=== PATIENT | female | born 1960 | race Two or more races ===

== ENCOUNTER 2021-02-05 14:59 | Outpatient (REF) | payer MEDICARE, MEDICAID, SELFPAY ==
[2021-02-05 15:10] LABS: COVID-19 Test Positive (Negative)
== END 2021-02-05 15:00 | disposition home or self-care (01) ==
LOC: HO.LAB 14:59
PROVIDERS: Visit Provider Internal Medicine
DX: Z20.822 Contact with and (suspected) exposure to COVID-19 (principal)
CPT/HCPCS: 36415; 87635; C9803

== ENCOUNTER 2021-02-20 15:17 | Outpatient (REF) | payer MEDICARE, MEDICAID, SELFPAY ==
[2021-02-20 15:36] LABS: COVID-19 Test Negative (Negative)
== END 2021-02-20 15:18 | disposition home or self-care (01) ==
LOC: HO.LAB 15:17
PROVIDERS: Visit Provider Internal Medicine
DX: Z20.822 Contact with and (suspected) exposure to COVID-19 (principal)
CPT/HCPCS: 36415; 87635; C9803

== ENCOUNTER 2022-01-24 16:13 | Emergency (ER) | payer MEDICARE, MEDICAID, SELFPAY ==
[2022-01-24 16:24] VITALS: BP 115/60; PULSE 75; RESP 16; TEMP 36.1; O2SAT 98; BMI 27.3
--- NOTE | 2022-01-24 17:45 | ED.BACK ---
HPI - Back Pain/Injury General Chief Complaint: Back Pain/Injury Stated Complaint: back pain Time Seen by Provider: 01/24/22 17:45 Source: patient Mode of arrival: ambulatory Limitations: no limitations History of Present Illness HPI Narrative: Patient is a 61 year old female presenting to the emergency department today with low back pain. Patient states that she has right sided low back pain that radiates down into her right leg. Patient states that she has had issues with her sciatic nerve and she believes this is another flare of that. Patient denies any numbness, tingling, dizziness, lightheadedness, abdominal pain, nausea, vomiting, fever, chills, blurry vision, double vision, loss of vision, chest pain, difficulty breathing, shortness of breath, night sweats, pain with urination, increased urinary frequency, increased urinary urgency, blood in her urine or stool, syncope or a near syncopal episode, recent trauma or falls, bowel incontinence, bladder incontinence, bowel retention, bladder retention, or any other complaints at this time. MD elicited complaint: back pain Pertinent past history: prior back pain Onset (ago): day(s) Timing: intermittent Severity: mild Pain scale (0-10): 3 Similar Symptoms Previously: Yes Quality: dull Location: lumbar spine Radiation: right upper leg Exacerbating factors: none Relieving factors: none Associated symptoms: denies other symptoms Related Data Previous Rx's Medication Instructions Recorded cyclobenzaprine 10 mg tablet 10 mg PO TID PRN 7 Days #21 tab 01/24/22 Allergies Allergy/AdvReac Type Severity Reaction Status Date / Time metoclopramide [From REGLAN] Allergy Severe AGITATION Unverified 07/04/20 18:46 Review of Systems Constitutional: Constitutional: Reports no additional constitutional complaints, Denies chills, Denies fever(s) and Denies night sweats Eyes: Eyes: Reports no additional eye complaints, Denies blurry vision, Denies change in vision, Denies diplopia, Denies eye discharge, Denies loss of vision and Denies eye pain ENT: Denies dizziness Cardiovascular: Cardiovascular: Reports no additional cardiovascular complaints, Denies chest pain, Denies lightheadedness, Denies Loss of Consciousness and Denies dyspnea Respiratory: Respiratory: Reports no additional respiratory complaints and Denies dyspnea Gastrointestinal: Gastrointestinal: Reports no additional gastrointestinal complaints, Denies abdominal pain, Denies melena, Denies hematochezia, Denies change in bowel habits and Denies change in stool character Genitourinary: Genitourinary: Denies hematuria, Denies urinary frequency, Denies dysuria, Denies urinary incontinence, Denies urinary hesitancy and Denies urinary urgency Musculoskeletal: Musculoskeletal: Reports no additional musculoskeletal complaints, Reports back pain, Denies numbness and Denies tingling Neurologic: Denies dizziness, Denies loss of vision, Denies numbness and Denies tingling Psychiatric: Psychiatric: Reports no additional psychiatric complaints Endocrine: Endocrine: Reports no additional endocrine complaints Hematologic/Lymphatic: Hematologic/Lymphatic: Reports no additional hematologic/lymphatic complaints Allergic/Immunologic: Allergic/Immunologic: Reports no additional allergic/immunologic complaints [facility] Past Medical History Attestation statement: The following information was validated with the patient. Source: old records reviewed Medical History Diabetes type 2, controlled HTN (hypertension) Hypothyroid Social History Social History Advance Directives: No Advance Directives Information Provided: No Patient : No Physical Exam Vital Signs: Vital Signs: Last Vital Signs Temp 97 F 01/24/22 16:24 Pulse 75 01/24/22 16:24 Resp 16 01/24/22 16:24 BP 115/60 01/24/22 16:24 Pulse Ox 98 01/24/22 16:24 BMI result Body Mass Index 27.3 Const: General: cooperative, no acute distress, alert and awake Nutritional Appearance: well nourished Orientation/consciousness: patient oriented x3 Limitations: no limitations HEENT: Head: Yes normal to inspection and Yes atraumatic Ears: hearing grossly normal bilaterally and external ears normal General nose exam: Normal external nose present, no nasal discharge noted and no epistaxis Face and sinus: Yes normal facial exam, No abrasion and No laceration Mouth: Normal oral and palatal mucosa present, no drooling and no muffled voice Eyes: General: appearance normal, both eyes and all related structures Periorbital: periorbital findings normal Eyelids: Yes eyelids normal Conjunctivae: conjunctivae normal Pupils: Equal, round and reactive pupils present EOM: EOMs intact bilaterally Neck: Neck: Yes normal visual inspection, Yes full ROM and Yes no lymphadenopathy Chest: Chest palpation & inspection: normal inspection of the chest Resp: Effort & Inspection: normal respiratory effort and able to speak in complete sentences Auscultation: clear to auscultation bilaterally Cardio: Rate: regular rate Rhythm: regular rhythm GI: Inspection: Yes normal to inspection : General: Yes no CVA tenderness Back/Spine/Pelvis: Back: no CVA tenderness Cervical Spine: normal cervical lordosis and cervical ROM normal Thoracic/Lumbar Spine: thoracic and lumbar spine normal to inspection and thoraco-lumbar ROM normal Neuro: General: patient oriented x3 and moves all extremities Cranial nerves: Yes Equal, round and reactive pupils present Cognition (Neuro): normal cognition Motor exam (neuro): 5/5 motor strength present throughout Sensory Exam: Normal double simultaneous stimulation for sensation Coordination: [id number] test normal Extrem: General: Yes normal to inspection, Yes full ROM and Yes capillary refill normal Psych: Appearance: grossly normal Mental Status: mental status grossly normal Affect: normal affect Attitude: cooperative Thought process: Normal thought process present Thought content: Normal thought content present Insight: Good insight present (Psych) MDM - Back Pain/Injury MDM Narrative Medical decision making narrative: Patient is a 61 year old female presenting to the emergency department today with low back pain. Patient's physical exam was unremarkable. I explained my physical exam findings to the patient. I answered all questions asked by the patient. Patient received PO Flexeril and IM Toradol which she stated helped her symptoms significantly. I stressed the importance of the patient taking her medication as prescribed. I stressed the importance of the patient following up with her primary care provider. I stressed the importance of the patient returning to the emergency department immediately if her symptoms were to worsen or if she were to develop any dizziness, shortness of breath, difficulty breathing, chest pain, blurry vision, loss of vision, nausea, vomiting, abdominal pain, fever, chills, back pain, or any other complaints. Patient verbalized agreement and understanding with this treatment plan and discharge. Differential Diagnosis Differential diagnosis: Likely sciatica Medical Records Attestation: I reviewed the patient's medical records. Discharge Plan Discharge Clinical Impression: Sciatica Patient Disposition: Home, Self-Care Instructions: Sciatica (ED) Additional Instructions: Follow up with your primary care provider. Return to the emergency department immediately if your symptoms worsen or if you develop any dizziness, shortness of breath, difficulty breathing, chest pain, blurry vision, loss of vision, nausea, vomiting, abdominal pain, fever, chills, back pain, or any other complaints. Prescriptions: New cyclobenzaprine 10 mg tablet 10 mg PO TID PRN (Reason: muscle spasm) 7 Days Qty: 21 0RF Referrals: Roberta Christianson MD [Primary Care Provider] - (Follow up with your PCP as needed. ) Print Language: Cambodian
[2022-01-24] MEDS: Cyclobenzaprine HCl 10 MG TABLET PO (17:52)
[2022-01-24] MEDS: Ketorolac Tromethamine 30 MG/ML VIAL IM (17:52)
== END 2022-01-24 18:19 | disposition home or self-care (01) ==
LOC: HO.ED 18:06
PROVIDERS: Emergency Provider Internal Medicine; PCP Internal Medicine
DX: M54.41 Lumbago with sciatica, right side (principal); E11.9 Type 2 diabetes mellitus without complications; I10 Essential (primary) hypertension
CPT/HCPCS: 96372; 99284; J1885

== ENCOUNTER 2022-04-17 17:36 | Emergency (ER) | payer MEDICARE, MEDICAID, SELFPAY ==
--- NOTE | ~2022-04-17 | CT_ITS ---
EXAMINATION: CT HEAD WITHOUT CONTRAST CLINICAL INFORMATION: Severe occipital headache. COMPARISON: None. TECHNIQUE: Contiguous axial imaging was performed from the skull base to vertex without intravenous administration of contrast. This CT examination was performed using dose optimization techniques as appropriate, variously including the following: *Automated exposure control *Adjustment of mA and/or kV according to patient size (this includes techniques or standardized protocols for targeted exams where dose is matched to indication/reason for exam; i.e. extremities or head) *Use of iterative reconstruction technique DLP: 582 mGy-cm FINDINGS: There is a group of calcifications in the left cerebellar hemisphere with mild associated hyperattenuation of the underlying parenchyma. There is no evidence of acute edematous territorial infarction. Chauhan-white matter differentiation is preserved. The ventricles are normal in size and configuration. No evidence for obstructive hydrocephalus. No abnormal mass effect or midline shift. No extra-axial fluid collections. No acute soft tissue or osseous abnormalities. Mucosal thickening of the paranasal sinuses. No air-fluid level. The mastoids and middle ear cavities are clear. CT/CT head/brain wo con IMPRESSION: Nonspecific calcified lesion in the left cerebellar hemisphere with associated hyperdensity of the parenchyma, in which small amount of blood products cannot be excluded. Recommend further evaluation with an MR of the brain with and without intravenous contrast. This critical result was discussed with Michelle Bustos at 04/17/2022 8:38 PM and it was ascertained that the content and urgency of the report was understood at the time of direct communication.
[2022-04-17 17:50] VITALS: BP 122/84; PULSE 92; RESP 18; TEMP 37; O2SAT 96; BMI 26.4
--- NOTE | 2022-04-17 19:34 | ED_ITS ---
HPI - URI/Sore Throat General Chief Complaint: Upper Respiratory Symptoms Stated Complaint: Headache/Sore throat/Ear pain/Fever Time Seen by Provider: 04/17/22 19:24 Source: patient Mode of arrival: ambulatory Limitations: no limitations History of Present Illness HPI Narrative: 61-year-old female with history of hypertension, diabetes presenting with 2 day of chills, sore throat, earache, diarrhea, myalgias, extreme headache, and states ?I know my body and I don't feel good?. Sudden in onset. She reports taking Tylenol with minimal relief, nothing seems to make it worse. She reports no one that she is in contact with is currently sick or has similar symptoms. She reports taking a trip to [facility] on wednesday and going in the water park. She reports her headache feels like a typical headache, however is not going away with Tylenol, she said its like a 7/10 and yesterday it came on suddenly and was a 10/10 she felt off balance and dizzy when it started. She denies head trauma, falls, vision changes, nausea, vomiting, dizziness, shortness of breath, chest pain, fever. Not on anticoagulation Related Data Previous Rx's Medication Instructions Recorded cyclobenzaprine 10 mg tablet 10 mg PO TID PRN muscle spasm 7 01/24/22 days #21 tabs amoxicillin 500 mg capsule 500 mg PO BID 10 days #20 caps 04/17/22 Allergies Allergy/AdvReac Type Severity Reaction Status Date / Time metoclopramide [From REGLAN] Allergy Severe AGITATION Unverified 07/04/20 18:46 Review of Systems Review of Systems: Constitutional : No Weight loss, No Fever, + Chills, + Fatigue, + Malaise ENT/Mouth : + sore throat, No Rhinorrhea Eyes: No Eye Pain, No Swelling, No Redness Cardiovascular : No Chest Pain, No SOB, No Dyspnea on Exertion, No Orthopnea, No Edema, No Palpitations Respiratory : No Cough, No Sputum, No Wheezing Gastrointestinal : No Nausea, No Vomiting, + Diarrhea, No Constipation, No abdominal Pain, No Hematochezia, No Melena Genitourinary : No Dysuria, No Urinary Frequency, No Hematuria, Musculoskeletal : No joint pain, + Myalgias, No Joint Swelling Skin : No Skin Lesions, No rash Neuro : No Weakness, No Numbness, No Dizziness, + Headache Psych : No Anxiety/Panic, No Depression All other systems reviewed and are negative Yes all other systems are reviewed and are negative [facility] Past Medical History Attestation statement: The following information was validated with the patient. Source: old records reviewed and nursing notes reviewed Medical History Diabetes type 2, controlled HTN (hypertension) Hypothyroid Social History Social History Advance Directives: No Advance Directives Information Provided: No Physical Exam Vital Signs: Vital Signs: Last Vital Signs Temp 98.6 F 04/17/22 17:50 Pulse 92 04/17/22 17:50 Resp 18 04/17/22 17:50 BP 122/84 04/17/22 17:50 Pulse Ox 96 04/17/22 17:50 O2 Del Method 04/17/22 17:50 BMI result Body Mass Index 26.4 VSS Appearance: Alert.? Oriented X3.? No acute distress.? Head: Normocephalic, atraumatic, no step-offs or deformities Eyes: Pupils equal, round and reactive to light.? ENT: + L-partial cerumen impaction, + R-Ear canal erythema Pharynx normal.? Neck: Normal inspection.? Neck supple.? Negative Kernig and Brudzinski. CVS: Normal heart rate and rhythm.? Pulses normal.? Respiratory: No respiratory distress.? Breath sounds normal.? Abdomen: Soft and nontender.? Skin: Skin warm and dry.? Normal skin color.? Normal skin turgor.? Extremities: No lower extremity edema.? No calf ttp. 5/5 strength to bilateral upper and lower extremities Neuro: Oriented X 3.? No motor deficit.? No sensory deficit. CN 2-12 intact. Normal [id number], [id number], steady tandem gait. Course Reevaluation(s) Reevaluation #1: Patient with slight leukocytosis likely secondary to otitis media. Chemistry with no acute findings. Coagulations within normal limits. Patient is COVID negative, negative for strep, influenza. Patient's symptoms likely secondary to otitis media. Abnormal head CT read initially however I discussed the CT and patient history and physical examination with Neurology Dr. Rush. He took the time to visualize patient's images and states that this is likely chronic in nature this could be followed up on an outpatient basis. Upon patient's discharge I did repeat neuro examination, neuro exam is nonfocal, normal c erebellar function. Low suspicion for ICH, cerebellar infarct. Patient feels well, pain improved after morphine. She is ambulating with a steady gait. I did educate her on findings of CT scan and advised her to follow-up with neurology as soon as possible. At this time I feel comfortable discharge home. Time: 21:37 MDM - URI/Sore Throat MDM Narrative Medical decision making narrative: 1920 61-year-old female presents today with headache, malaise, myalgias, ear pain and diarrhea over the last 24 hours. No sick contacts. Physical exam: Positive erythema in right ear canal. Negative Kernig and Brudzinski. Based off history and physical examination unlikely that this is meningitis, ICH, likely otitis media. Unlikely that this is a posterior stroke. Plan: CT of head Medical Records Attestation: I reviewed the patient's medical records. Lab Data Attestation: I reviewed the patient's lab results. Result diagrams: 04/17/22 21:05 04/17/22 21:05 Labs: Lab Results 04/17/22 04/17/22 04/17/22 Range/Units 19:39 19:39 19:39 WBC (4.8-10.8) X10*3/uL RBC (4.20-5.50) X10*6/uL Hgb (12.0-16.0) g/dl Hct (37.0-47.0) % MCV (80.0-98.0) fL MCH (27.0-33.0) pg MCHC (31.0-35.0) g/dl RDW (11.0-16.0) % Plt Count (160-400) X10*3/uL MPV (9.4-12.3) fL Immature Gran % (Auto) (0.0-0.4) % Neut % (Auto) (45-73) % Lymph % (Auto) (20-40) % Mcintosh % (Auto) (2-11) % Eos % (Auto) (0-4) % Baso % (Auto) (0-2) % Lymph # (Auto) (1.2-4.9) X10*3/uL Mcintosh # (Auto) (0.1-1.2) X10*3/uL Eos # (Auto) (0.0-0.4) X10*3/uL Baso # (Auto) (0.0-0.2) X10*3/uL Abs Immat Gran (auto) (0.00-0.03) X10*3/uL Absolute Neuts (auto) (2.0-8.3) x10*3/uL Absolute Nucleated RBC (0.0-0.012) X10*3/uL Nucleated RBC % (auto) (0.0-0.2) /100WBC PT (10.0-13.1) SEC INR (0.9-1.1) Sodium (135-145) mmol/L Potassium (3.3-5.1) mmol/L Chloride (96-108) mmol/L Carbon Dioxide (22-29) mmol/L Anion Gap (12-20) BUN (9-16) mg/dL Creatinine (0.5-1.4) mg/dL Estim Creat Clear Calc Estimated GFR Random Glucose (60-115) mg/dL Calcium (8.4-10.2) mg/dL Total Bilirubin (0.0-1.0) mg/dL AST (5-31) U/L ALT (0-31) U/L Alkaline Phosphatase (39-117) U/L Total Protein (6.5-8.0) g/dL Albumin (3.5-5.0) g/dL COVID-19 (JUAN JOSE) Negative (Negative) COVID-19 Clin Com TNP Influenza Type A (TALAT) Negative (Negative) Influenza Type B (TALAT) Negative (Negative) Influenza A & B Note See Note S. pyogenes GrpA TALAT Negative (Negative) 04/17/22 04/17/22 04/17/22 Range/Units 21:05 21:05 21:05 WBC 11.4 H (4.8-10.8) X10*3/uL RBC 4.08 L (4.20-5.50) X10*6/uL Hgb 11.0 L (12.0-16.0) g/dl Hct 34.5 L (37.0-47.0) % MCV 84.6 (80.0-98.0) fL MCH 27.0 (27.0-33.0) pg MCHC 31.9 (31.0-35.0) g/dl RDW 13.1 (11.0-16.0) % Plt Count 281 (160-400) X10*3/uL MPV 11.2 (9.4-12.3) fL Immature Gran % (Auto) 0.4 (0.0-0.4) % Neut % (Auto) 77.5 H (45-73) % Lymph % (Auto) 13.4 L (20-40) % Mcintosh % (Auto) 6.4 (2-11) % Eos % (Auto) 1.7 (0-4) % Baso % (Auto) 0.6 (0-2) % Lymph # (Auto) 1.5 (1.2-4.9) X10*3/uL Mcintosh # (Auto) 0.7 (0.1-1.2) X10*3/uL Eos # (Auto) 0.2 (0.0-0.4) X10*3/uL Baso # (Auto) 0.1 (0.0-0.2) X10*3/uL Abs Immat Gran (auto) 0.04 H (0.00-0.03) X10*3/uL Absolute Neuts (auto) 8.8 H (2.0-8.3) x10*3/uL Absolute Nucleated RBC 0.000 (0.0-0.012) X10*3/uL Nucleated RBC % (auto) 0.0 (0.0-0.2) /100WBC PT 12.6 (10.0-13.1) SEC INR 1.1 (0.9-1.1) Sodium 139 (135-145) mmol/L Potassium 3.6 (3.3-5.1) mmol/L Chloride 101 (96-108) mmol/L Carbon Dioxide 28 (22-29) mmol/L Anion Gap 14 (12-20) BUN 16 (9-16) mg/dL Creatinine 1.14 (0.5-1.4) mg/dL Estim Creat Clear Calc 41.8 Estimated GFR 48 Random Glucose 114 (60-115) mg/dL Calcium 9.2 (8.4-10.2) mg/dL Total Bilirubin 0.2 (0.0-1.0) mg/dL AST 13 (5-31) U/L ALT 15 (0-31) U/L Alkaline Phosphatase 71 (39-117) U/L Total Protein 7.4 (6.5-8.0) g/dL Albumin 4.4 (3.5-5.0) g/dL COVID-19 (JUAN JOSE) (Negative) COVID-19 Clin Com Influenza Type A (TALAT) (Negative) Influenza Type B (TALAT) (Negative) Influenza A & B Note S. pyogenes GrpA TALAT (Negative) Critical Care Time Critical Care Time Critical Care Time: No Discharge Plan Discharge Clinical Impression: Otitis media, Headache Patient Disposition: Home, Self-Care Instructions: Ear Infection (ED) Additional Instructions: Take your medications as prescribed. If you were prescribed antibiotics today, it is important that you take your medication to their entirety, do not skip any doses, do not finish them early. Follow-up with your primary care provider this week. Return to the emergency department with new or worsening symptoms. Such as fevers, chills, chest pain, shortness of breath, nausea, vomiting, dizziness, headache, vision changes, lethargy In case of emergency call [address] showed some calcifications, therefore you should follow-up with neurology as soon as possible. Prescriptions: New amoxicillin 500 mg capsule 500 mg PO BID 10 Days Qty: 20 0RF No Action cyclobenzaprine 10 mg tablet 10 mg PO TID PRN (Reason: muscle spasm) 7 Days Qty: 21 0RF Referrals: Roberta Christianson MD [Primary Care Provider] - 2 days Og Rush MD [Physician] - 2 days Stand Alone Forms: Work/School Release
[2022-04-17 20:07] LABS: Strep A Nucleic Acid Negative (Negative)
[2022-04-17 20:14] LABS: COVID-19 Test Negative (Negative); IDNOW Serial# 16C4AD1C; Influenza A Negative (Negative); Influenza B2 Negative (Negative)
[2022-04-17 21:09] LABS: MANUAL DIFF FLAG NO
[2022-04-17 21:14] LABS: Basophils Absolute Auto 0.1 X10*3/uL (0.0-0.2); Basophils Percent Auto 0.6 % (0-2); Eosinophils Absolute Auto 0.2 X10*3/uL (0.0-0.4); Eosinophils Percent Auto 1.7 % (0-4); Hematocrit 34.5 % (37.0-47.0); Imm Gran Abs Auto 0.04 X10*3/uL (0.00-0.03); Imm Gran Pct Auto 0.4 % (0.0-0.4); Lymphocytes Absolute Auto 1.5 X10*3/uL (1.2-4.9); Lymphocytes Percent Auto 13.4 % (20-40); Mean Corpuscular HGB Conc 31.9 g/dl (31.0-35.0); Mean Corpuscular Volume 84.6 fL (80.0-98.0); Mean Platelet Volume 11.2 fL (9.4-12.3); Monocytes Absolute Auto 0.7 X10*3/uL (0.1-1.2); Monocytes Percent Auto 6.4 % (2-11); Neutrophils Absolute Auto 8.8 x10*3/uL (2.0-8.3); Neutrophils Percent Auto 77.5 % (45-73); Platelet Count 281 X10*3/uL (160-400); Red Blood Count 4.08 X10*6/uL (4.20-5.50); Red Cell Distribution Width 13.1 % (11.0-16.0); White Blood Count 11.4 X10*3/uL (4.8-10.8)
--- NOTE | 2022-04-17 21:17 | PC.NURSE ---
18g IV access established in right AC. labs drawn and sent for analysis. rule out head bleed, per GERSON Bustos.
[2022-04-17 21:22] LABS: INTERNATIONAL NORM RATIO 1.1 (0.9-1.1); Prothrombin Time 12.6 SEC (10.0-13.1)
[2022-04-17 21:27] LABS: Alanine Aminotransferase 15 U/L (0-31); Albumin Level 4.4 g/dL (3.5-5.0); Alkaline Phosphatase 71 U/L (39-117); Anion Gap 14 (12-20); Aspartate Amino Transferase 13 U/L (5-31); Bilirubin Total 0.2 mg/dL (0.0-1.0); Blood Urea Nitrogen 16 mg/dL (9-16); Calcium 9.2 mg/dL (8.4-10.2); Carbon Dioxide 28 mmol/L (22-29); Chloride 101 mmol/L (96-108); Creatinine Clr Calc Pharmacy 41.8; Estimated Glomerular Filt Rate 48; Glucose Random 114 mg/dL (60-115); Potassium 3.6 mmol/L (3.3-5.1); Sodium 139 mmol/L (135-145); Total Protein 7.4 g/dL (6.5-8.0)
[2022-04-17 21:36] VITALS: BP 133/62; PULSE 85; RESP 18; TEMP 36.1; O2SAT 95
[2022-04-17] MEDS: Acetaminophen 325 MG TABLET 650 MG PO (22:00)
== END 2022-04-17 22:06 | disposition home or self-care (01) ==
PROVIDERS: Physician Assistant; Emergency Provider Internal Medicine; PCP Internal Medicine
DX: H66.93 Otitis media, unspecified, bilateral (principal); J02.8 Acute pharyngitis due to other specified organisms; R51.9 Headache, unspecified; H92.03 Otalgia, bilateral; R50.9 Fever, unspecified; Z20.822 Contact with and (suspected) exposure to COVID-19; Z79.899 Other long term (current) drug therapy
CPT/HCPCS: 70450; 80053; 85025; 85610; 87502; 87635; 87651; 99284

== ENCOUNTER 2022-06-03 17:20 | Emergency (ER) | payer MEDICARE, MEDICAID, SELFPAY ==
[2022-06-03 17:58] VITALS: BP 130/57; PULSE 74; RESP 18; TEMP 36.6; O2SAT 97; BMI 26.4
--- NOTE | 2022-06-03 19:10 | ED.BACK ---
HPI - Back Pain/Injury General Chief Complaint: Back Pain/Injury Stated Complaint: left lower back pain Time Seen by Provider: 06/03/22 19:10 Source: patient Mode of arrival: ambulatory Limitations: no limitations History of Present Illness HPI Narrative: 62-year-old female presents to the ER for evaluation of left lower back pain that started 4 days ago. She reports that came on gradually and she can not recall what she was doing that started. She reports the pain is in her left lower back and her left buttock and radiates to the groin and down the back of the left leg. She reports it is worse when she is trying to walk around. She denies any falls or injuries. She has not been taking any medications for pain. She denies any urinary or bowel incontinence, no lower extremity weakness, numbness, tingling. MD elicited complaint: back pain Onset (ago): day(s) (4) Timing: constant Severity: moderate Similar Symptoms Previously: No Quality: sharp, stabbing and spasming Location: left lower back Radiation: groin, buttocks and left upper leg Exacerbating factors: movement and walking Relieving factors: immobilization and supine Context: unknown Associated symptoms: denies other symptoms Work related injury: No Related Data Previous Rx's Medication Instructions Recorded cyclobenzaprine 10 mg tablet 10 mg PO TID PRN muscle spasm 7 01/24/22 days #21 tabs amoxicillin 500 mg capsule 500 mg PO BID 10 days #20 caps 04/17/22 cyclobenzaprine 10 mg tablet 10 mg PO TID PRN muscle spasm #14 06/03/22 tabs ibuprofen 600 mg tablet 600 mg PO Q8H PRN pain #14 tabs 06/03/22 Allergies Allergy/AdvReac Type Severity Reaction Status Date / Time metoclopramide [From REGLAN] Allergy Severe AGITATION Verified 06/03/22 17:58 Review of Systems Review of Systems: Constitutional: No Fever, No Chills Cardiovascular: No Chest Pain, No SOB Gastrointestinal: No Nausea, No Vomiting, No Diarrhea, No abdominal Pain Genitourinary: No Dysuria, No Urinary Frequency, No Hematuria, No urinary incontinence Musculoskeletal: + joint pain, +Myalgias Skin: No Skin Lesions, No rash Neuro: No Weakness, No Numbness, No Dizziness, No Headache Heme/Lymph: No Bruising, No Lymphadenopathy Endocrine: No Polyuria, No Polydipsia PMFSH Past Medical History Medical History Diabetes type 2, controlled HTN (hypertension) Hypothyroid Social History Social History Advance Directives: No Advance Directives Information Provided: No Physical Exam Vital Signs: Vital Signs: Last Vital Signs Temp 97.8 F 06/03/22 17:58 Pulse 74 06/03/22 17:58 Resp 18 06/03/22 17:58 BP 130/57 L 06/03/22 17:58 Pulse Ox 97 06/03/22 17:58 O2 Del Method 06/03/22 17:58 BMI result Body Mass Index 26.4 Appearance: Alert. Oriented X3. No acute distress. HEENT: normal inspection CVS: Normal heart rate and rhythm. Pulses normal. Respiratory: No respiratory distress. Skin: Skin warm and dry. Normal skin color. Normal skin turgor. No rashes. Back: Normal inspection. Soft tissue tenderness of the left low lumbar area, & SI joint. Extremities: Normal inspection x4 atraumatic x4. Neuro: Oriented X 3. No motor deficit. No sensory deficit. Ambulates with steady gait. Course Course Course Narrative: 62-year-old female presents to the ER for evaluation of nontraumatic left lower back pain that radiates into her left buttock and down her left leg. She has no red flag symptoms of low back pain. She denies any trauma. She denies any urinary symptoms. She is moving around well on the stretcher, steady gait. She has tenderness of her SI joint on examination. Will plan to start an NSAID, muscle relaxer never follow-up with her PCP. Will give low back exercises. She was given strict return precautions. Stable for discharge home. Discharge Plan Discharge Clinical Impression: Sciatica Patient Disposition: Home, Self-Care Instructions: Sciatica (ED), Lower Back Exercises (ED) Additional Instructions: No bending, lifting or twisting. Use ice several times per day for 20 minutes at a time for the next 48 hours and then change to heat. Take medications as prescribed to help with pain and discomfort. Follow up with your Primary Care Doctor this week. If your pain worsens, if you develop new numbness, tingling, weakness, loss of function or incontinence call 911 or come back to the ER right away for evaluation. Prescriptions: New cyclobenzaprine 10 mg tablet 10 mg PO TID PRN (Reason: muscle spasm) Qty: 14 0RF ibuprofen 600 mg tablet 600 mg PO Q8H PRN (Reason: pain) Qty: 14 0RF No Action amoxicillin 500 mg capsule 500 mg PO BID 10 Days Qty: 20 0RF cyclobenzaprine 10 mg tablet 10 mg PO TID PRN (Reason: muscle spasm) 7 Days Qty: 21 0RF Referrals: Roberta Christianson MD [Primary Care Provider] - (Low back pain consistent with sciatica) Interventions: ED Discharge Assessment Last Done: 06/03/22 19:51
[2022-06-03] MEDS: Cyclobenzaprine HCl 10 MG TABLET PO (19:48)
[2022-06-03] MEDS: Ketorolac Tromethamine 30 MG/ML VIAL IM (19:48)
== END 2022-06-03 19:53 | disposition home or self-care (01) ==
PROVIDERS: Emergency Provider Emergency Medicine; PCP Internal Medicine
DX: M54.32 Sciatica, left side (principal); I10 Essential (primary) hypertension; E11.9 Type 2 diabetes mellitus without complications
CPT/HCPCS: 96372; 99283; 99284; J1885

== ENCOUNTER 2022-07-15 18:31 | Emergency (ER) | payer MEDICARE, MEDICAID, SELFPAY | END 2022-07-15 20:58 | disposition left against medical advice (07) | PROVIDERS: Emergency Provider Emergency Medicine | DX: T14.8XXA Other injury of unspecified body region, initial encounter (principal); W54.0XXA Bitten by dog, initial encounter; Y93.9 Activity, unspecified; Y92.9 Unspecified place or not applicable; Y99.9 Unspecified external cause status ==

== ENCOUNTER 2022-10-16 04:14 | Emergency (ER) | payer MEDICARE, MEDICAID, SELFPAY ==
[2022-10-16 04:22] VITALS: BP 127/64; PULSE 72; O2SAT 96
[2022-10-16 04:34] VITALS: BP 116/55; PULSE 73; RESP 16; TEMP 36.8; O2SAT 97; BMI 26.4
[2022-10-16 05:09] LABS: COVID-19 Test Negative (Negative)
[2022-10-16 05:10] LABS: IDNOW Serial# 55D5AD1C; Influenza A Positive (Negative); Influenza B2 Negative (Negative)
--- NOTE | 2022-10-16 06:26 | ED_ITS ---
HPI - URI/Sore Throat General Chief Complaint: Upper Respiratory Symptoms Stated Complaint: FLU LIKE SYMPTOMS Time Seen by Provider: 10/16/22 06:02 Source: patient and family (Spouse) Mode of arrival: ambulatory Limitations: no limitations History of Present Illness HPI Narrative: 62-year-old female came in with 2 days symptoms of generalized weakness, body ache, generalize joint ache, sore throat, coughing, subjective fever, exposed her who had similar symptoms. Related Data Previous Rx's Medication Instructions Recorded cyclobenzaprine 10 mg tablet 10 mg PO TID PRN muscle spasm 7 01/24/22 days #21 tabs amoxicillin 500 mg capsule 500 mg PO BID 10 days #20 caps 04/17/22 cyclobenzaprine 10 mg tablet 10 mg PO TID PRN muscle spasm #14 06/03/22 tabs ibuprofen 600 mg tablet 600 mg PO Q8H PRN pain #14 tabs 06/03/22 oseltamivir 75 mg capsule (Tamiflu) 75 mg PO BID 5 days #10 caps 10/16/22 Allergies Allergy/AdvReac Type Severity Reaction Status Date / Time metoclopramide [From REGLAN] Allergy Severe AGITATION Verified 06/03/22 17:58 Review of Systems Review of Systems: All other systems are reviewed and are negative Constitutional: Reports as per HPI and Reports no additional constitutional com plaints Eyes: Reports as per HPI and Reports no additional eye complaints Reports system reviewed and no additional complaints, except as documented Cardiovascular: Reports as per HPI and Reports no additional cardiovascular complaints Respiratory: Reports as per HPI and Reports no additional respiratory complaints Gastrointestinal: Reports as per HPI and Reports no additional gastrointestinal complaints Genitourinary: Reports no additional female genitourinary complaints Musculoskeletal: Reports no additional musculoskeletal complaints Skin/Breast: Reports system reviewed and no additional complaints, except as docu Psychiatric: Reports no additional psychiatric complaints Endocrine: Reports no additional endocrine complaints Hematologic/Lymphatic: Reports no additional hematologic/lymphatic complaints Allergic/Immunologic: Reports no additional allergic/immunologic complaints Reports system reviewed and no additional complaints, except as documented and Reports Abnormal speech present [facility] Past Medical History Medical History Diabetes type 2, controlled HTN (hypertension) Hypothyroid Social History Social History Advance Directives: No Advance Directives Information Provided: Yes Physical Exam Vital Signs: Vital Signs: Last Vital Signs Temp 98.2 F 10/16/22 04:34 Pulse 73 10/16/22 04:34 Resp 16 10/16/22 04:34 BP 116/55 L 10/16/22 04:34 Pulse Ox 97 10/16/22 04:34 O2 Del Method 10/16/22 04:34 BMI result Body Mass Index 26.4 Vital signs have been reviewed as appeared to be correct. Blood pressure normal. Heart rate normal. Respiration rate normal. Temperature normal. Oxygen saturation normal. Appearance: Alert. Oriented X3. No acute distress. Head: Normal external exam. Normocephalic. Atraumatic. No Mancia signs noted. No raccoon eyes noted Eyes: PERRLA. EOMI. Conjunctiva and sclera normal. Eyelids normal. ENT: TM's Normal. Pharynx normal. Uvula midline. Moist mucous membranes. No trismus noted. No drooling noted. No muffled voice noted. Neck: Normal inspection. Neck supple. FROM. No adenopathy. Thyroid Normal. No meningeal signs. No neck mass noted. CVS: Normal heart rate and rhythm. Heart sound normal. No murmurs noted. Pulses normal throughout. Respiratory: No respiratory distress. Painless inspiration. Breath sounds normal. No wheezes/rales/rhonchi noted. Chest nontender. No accessory muscle usage noted or decreased air movement noted. Abdomen: Soft and nontender. Bowel sounds normal in all 4 quadrants. No distention noted. No organomegaly noted. No visible injury noted. Back: No CVA tenderness. Full range of motion noted. Skin: Skin warm and dry. Normal skin color. Normal skin turgor. No rashes/lesions/lacerations noted. Extremities: No lower extremity edema. Extremities exhibit normal range of motion. Extremities nontender. Neuro: Oriented X 3. Cranial nerve exam: II-XII are grossly intact No motor deficit. No sensory deficit. Reflexes normal. Course Course Course Narrative: Patient and tested positive for influenza A symptoms started 2 days ago may benefit from Tamiflu. Medical Decision Making Differential Diagnosis Differential Diagnoses: The differential diagnosis associated with the presentation includes (Influenza/COVID 19 infection/RSV/pneumonia.) Lab Data MDM Lab Attestation statement: I reviewed the patient's lab results. Labs: Lab Results 10/16/22 10/16/22 Range/Units 04:38 04:38 COVID-19 ([facility]) Negative (Negative) COVID-19 Clin Com See Note Influenza Type A (TALAT) Positive A (Negative) Influenza Type B (TALAT) Negative (Negative) Influenza A & B Note See Note Discharge Plan Discharge Clinical Impression: Influenza Patient Disposition: Home, Self-Care Instructions: Influenza (ED) Prescriptions: New oseltamivir [Tamiflu] 75 mg capsule 75 mg PO BID 5 Days Qty: 10 0RF No Action amoxicillin 500 mg capsule 500 mg PO BID 10 Days Qty: 20 0RF cyclobenzaprine 10 mg tablet 10 mg PO TID PRN (Reason: muscle spasm) 7 Days Qty: 21 0RF cyclobenzaprine 10 mg tablet 10 mg PO TID PRN (Reason: muscle spasm) Qty: 14 0RF ibuprofen 600 mg tablet 600 mg PO Q8H PRN (Reason: pain) Qty: 14 0RF Referrals: Physician,Unknown J [Primary Care Provider] -
--- NOTE | 2022-10-16 06:46 | PC.NURSE ---
PT EVALUATED BY PROVIDER. UPDATED ON POSITIVE FLU RESULT BY PROVIDER. HOME CARE DISCUSSED BY PROVIDER AND RN RESP EVEN, EASY UNLABORED. SPEAKING IN FULL CLEAR SENTENCES.
== END 2022-10-16 06:49 | disposition home or self-care (01) ==
PROVIDERS: Emergency Provider Emergency Medicine
DX: J10.1 Influenza due to other identified influenza virus with other respiratory manifestations (principal); M79.10 Myalgia, unspecified site; R05.9 Cough, unspecified; R50.9 Fever, unspecified; Z20.822 Contact with and (suspected) exposure to COVID-19
CPT/HCPCS: 87502; 87635; 99282; 99283

== ENCOUNTER 2024-11-16 18:16 | Emergency (ER) | payer OTHER, SELFPAY ==
--- NOTE | ~2024-11-16 | CT_ITS ---
CLINICAL HISTORY: headache CT head without contrast Comparison: 04/17/2022 Findings: No intracranial mass, midline shift, hydrocephalus, or acute hemorrhage. No acute process in sinuses or mastoids. No acute bony abnormality. Impression: No acute intracranial process This document has been electronically signed by: Bashir Matthew MD on 11/16/2024 20:06:35
[2024-11-16 18:29] VITALS: BP 120/55; PULSE 72; RESP 16; TEMP 36.3; O2SAT 96; BMI 27.3
[2024-11-16 21:39] VITALS: BP 129/57; PULSE 62; RESP 16; TEMP 36.6; O2SAT 97
--- NOTE | 2024-11-16 21:42 | PC.NURSE ---
Pt brought to 6h from waiting room, assumed care of pt at this time. A&Ox3 skin pwd respirations even unlabored. VSS. Endorsing headache radiating into posterior neck x 3 days. Denies vision changes, denies accompanying symptoms. Awaiting primary provider eval, aware of plan of care.
--- NOTE | 2024-11-16 21:52 | ED_ITS ---
HPI - Headache General Chief Complaint: Headache Stated Complaint: Headache Time Seen by Provider: 11/16/24 21:44 Source: patient Mode of arrival: ambulatory Limitations: no limitations History of Present Illness ED Provider: Dr. Viviane Gutierrez HPI Narrative: Patient comes to the emergency room complaining of a weird sensation going around the right side of her neck into her scalp. Patient states that it is not pain, states that she has a sensation of something twitching or moving like a snake going around her back and head. Patient denies any injuries. Patient denies any rash. Denies nausea vomiting or diarrhea. Related Data Previous Rx's ?Medication ?Instructions ?Recorded cyclobenzaprine 10 mg tablet 10 mg PO TID PRN muscle spasm 7 01/24/22 days #21 tabs amoxicillin 500 mg capsule 500 mg PO BID 10 days #20 caps 04/17/22 cyclobenzaprine 10 mg tablet 10 mg PO TID PRN muscle spasm #14 06/03/22 tabs ibuprofen 600 mg tablet 600 mg PO Q8H PRN pain #14 tabs 06/03/22 oseltamivir 75 mg capsule (Tamiflu) 75 mg PO BID 5 days #10 caps 10/16/22 cyclobenzaprine 10 mg tablet 10 mg PO TID PRN muscle spasm #7 11/16/24 tabs Allergies Allergy/AdvReac Type Severity Reaction Status Date / Time metoclopramide [From REGLAN] Allergy Severe AGITATION Verified 11/16/24 18:31 Review of Systems Review of Systems: Constitutional : No Weight loss, No Fever, No Chills, No Night Sweats, No Fatigue, No Malaise ENT/Mouth : No Hearing loss, No Ear Pain, No Nasal Congestion, No Sinus Pain, No Hoarseness, No sore throat, No Rhinorrhea, No Swallowing Difficulty Eyes: No Eye Pain, No Swelling, No Redness, No Foreign Body, No Discharge, No Vision Changes Cardiovascular : No Chest Pain, No SOB, No Dyspnea on Exertion, No Orthopnea, No Edema, No Palpitations Respiratory : No Cough, No Sputum, No Wheezing, No Smoke Exposure, No Dyspnea Gastrointestinal : No Nausea, No Vomiting, No Diarrhea, No Constipation, No abdominal Pain, No Hematochezia, No Melena Genitourinary : no irregular bleeding, No Dysuria, No Urinary Frequency, No Hematuria, No Urinary Incontinence, No Urgency, No Flank Pain, No Urinary Flow Changes, No Hesitancy Musculoskeletal : Complaining of muscle twitching around the right side of the neck Skin : No Skin Lesions, No rash Neuro : No Weakness, No Numbness, No Paresthesias, No Loss of Consciousness, No Dizziness, No Headache Psych : No Anxiety/Panic, No Depression, No SI/HI/AH/VH, No Social Issues, Heme/Lymph: No Bruising, No Bleeding,No Lymphadenopathy Endocrine : No Polyuria, No Polydipsia, No Temperature Intolerance [facility] Past Medical History Medical History Hypothyroid Diabetes type 2, controlled HTN (hypertension) Social History Social History Smoked in Last 30 Days: No Use of substances other than those prescribed or required for medical reasons: No Advance Directives: No Advance Directives Information Provided: No Physical Exam Vital Signs: Vital Signs: Last Vital Signs Temp 97.9 F 11/16/24 21:39 Pulse 62 11/16/24 21:39 Resp 16 11/16/24 21:39 BP 129/57 L 11/16/24 21:39 Pulse Ox 97 11/16/24 21:39 O2 Del Method Room Air 11/16/24 21:39 BMI result Body Mass Index 27.3 Const: Other: Appearance: Alert. Oriented X3. No acute distress. Eyes: Pupils equal, round and reactive to light. ENT: Pharynx normal. Neck: Normal inspection. Neck supple. No lymph nodes noted. No crepitus, no C- spine tenderness, normal flexion and extension. CVS: Normal heart rate and rhythm. Pulses normal. Normal S1 and S2 Respiratory: No respiratory distress. Breath sounds normal. No Wheezing. No rales Abdomen: Soft and nontender. No rigidity. No distention. Back: Pain to palpation over the suprascapular muscles on the right. Palpable muscle spasms Skin: Skin warm and dry. Normal skin color. Normal skin turgor. Extremities: No lower extremity edema. No Lacerations. No Rash Neuro: Oriented X 3. No motor deficit. No sensory deficit. Moving all extremities. No slurred speech. CN 2 through 12 grossly intact Psych: calm, cooperative, normal affect Medical Decision Making Medical Decision Making MDM Narrative: CT scan of the head does not show any acute abnormalities Independent Interpretation I performed an independent interpretation of an: CT Scan Radiology Impression Discussion of test interpretation with radiology: I have reviewed the radiologist's reading. Radiologist Impression: Findings: No intracranial mass, midline shift, hydrocephalus, or acute hemorrhage. No acute process in sinuses or mastoids. No acute bony abnormality. Impression: No acute intracranial process Independent Historian Clinical information obtained from an independent historian. History obtained from or confirmed by: Spouse Discharge Plan Discharge Clinical Impression: Muscle spasm Patient Disposition: Home, Self-Care Instructions: Muscle Spasm (ED) Additional Instructions: Please follow-up with your primary care physician tomorrow. If you have any worsening or new symptoms, please return to the emergency room or call 911 Prescriptions: New cyclobenzaprine 10 mg tablet 10 mg PO TID PRN (Reason: muscle spasm) Qty: 7 0RF No Action amoxicillin 500 mg capsule 500 mg PO BID 10 Days Qty: 20 0RF cyclobenzaprine 10 mg tablet 10 mg PO TID PRN (Reason: muscle spasm) 7 Days Qty: 21 0RF cyclobenzaprine 10 mg tablet 10 mg PO TID PRN (Reason: muscle spasm) Qty: 14 0RF ibuprofen 600 mg tablet 600 mg PO Q8H PRN (Reason: pain) Qty: 14 0RF oseltamivir [Tamiflu] 75 mg capsule 75 mg PO BID 5 Days Qty: 10 0RF Print Language: Ug[place]
[2024-11-16] MEDS: Cyclobenzaprine HCl 10 MG TABLET PO (22:11)
--- NOTE | 2024-11-16 22:18 | PC.NURSE ---
Medicated per DMITRY cleared for [facility].
[2024-11-16 22:19] VITALS: BP 129/57; PULSE 62; RESP 16; TEMP 36.6; O2SAT 97
== END 2024-11-16 22:19 | disposition home or self-care (01) ==
PROVIDERS: Emergency Provider Emergency Medicine; PCP Internal Medicine
DX: M62.838 Other muscle spasm (principal); E11.9 Type 2 diabetes mellitus without complications; I10 Essential (primary) hypertension; E03.9 Hypothyroidism, unspecified; Z79.899 Other long term (current) drug therapy
CPT/HCPCS: 70450; 99284

== ENCOUNTER → 2024-11-16 18:46 | Outpatient (BNV) | payer MEDICARE, MEDICAID, SELFPAY | PROVIDERS: PCP Internal Medicine; Visit Provider Radiology Diagnostic Radiology | DX: R51.9 Headache, unspecified (principal) | CPT/HCPCS: 70450 ==